=== PATIENT | female | born 1955 | race American Indian/Alaskan Native ===

== ENCOUNTER 2021-05-15 19:42 | Inpatient (IN) | payer OTHER, MEDICAID, SELFPAY ==
[~2021-05-15] VITALS: Ht 157.5 cm; Wt 50.8 kg
[2021-05-15 19:42] VITALS: BP_SYST 183
[2021-05-15 21:59] LABS: BASOPHILS # (AUTO) 0.1 K/uL (0.0-0.2); BASOPHILS % (AUTO) 0.6 % (0.0-2.0); HEMATOCRIT 37.8 % (36-48); HEMOGLOBIN 12.6 g/dL (12.0-16.0); LYMPHOCYTES # (AUTO) 1.5 K/uL (1.0-5.5); MEAN CORPUSCULAR HEMOGLOBIN 28 pg (27-31); MEAN CORPUSCULAR HGB CONC 33 % (32-36); MEAN CORPUSCULAR VOLUME 85 fL (79.0-98.0); MONOCYTES # (AUTO) 0.9 K/uL (0.0-1.0); MONOCYTES % (AUTO) 9.9 % (1.7-9.3); NEUTROPHILS # (AUTO) 6.3 K/uL (1.8-7.7); NEUTROPHILS % (AUTO) 72.5 % (40.0-70.0); PLATELET COUNT (AUTO) 320 K/uL (130-430); RED BLOOD CELL COUNT(AUTO) 4.44 MIL/uL (4.2-6.2); RED CELL DISTRIBUTION WIDTH 18.3 % (9.0-15.0); WHITE BLOOD COUNT (AUTO) 8.7 K/uL (4.8-10.8)
[2021-05-15 22:38] LABS: ANION GAP 15 (5-15); CALCIUM 9.7 mg/dL (8.4-11.0); CHLORIDE 105 mmol/L (98-107); CREATININE 0.86 mg/dL (0.55-1.30); GLUCOSE 122 mg/dL (70-99); POTASSIUM 3.6 mmol/L (3.5-5.1); SODIUM SERUM 140 mmol/L (136-145); UREA NITROGEN, BLOOD 15 mg/dL (8-21)
[2021-05-15 22:41] LABS: GFR AFRICAN AMERICAN 85 mL/min (>90)
[2021-05-15 22:51] LABS: ALANINE AMINOTRANSFERASE 20 U/L (12-78); ALBUMIN 4.1 g/dL (3.4-4.8); ASPARTATE AMINOTRANSFERASE 19 U/L (10-37); THYROID STIMULATING HORMONE 4.99 uIu/mL (0.36-3.74); TOTAL BILIRUBIN 0.4 mg/dL (0.0-1.0)
[2021-05-15 22:53] LABS: ALCOHOL, BLOOD < 3 mg/dL (<10)
[2021-05-15] MEDS ORDERED: GLU500 PO (23:14)
[2021-05-15] MEDS ORDERED: FURO-150 PO (23:15)
[2021-05-15] MEDS ORDERED: SILD20TA PO (23:16)
[2021-05-15] MEDS ORDERED: PREG150C46 PO (23:22)
[2021-05-15] MEDS ORDERED: ROSU20TA2 PO (23:24)
[2021-05-15] MEDS ORDERED: OMEP40CA20 PO (23:26)
[2021-05-15] MEDS ORDERED: NIFE90TA48 PO (23:26)
[2021-05-15] MEDS ORDERED: PILO5TAB11 PO (23:27)
[2021-05-15] MEDS ORDERED: HYDR-3921 PO (23:28)
--- NOTE | 2021-05-15 23:30 | NUR ---
PATIENT REFUSING TO GO TO CT SCAN AT THIS TIME. NOTIFIED
--- NOTE | 2021-05-15 23:30 | NUR ---
Patient to [facility] for evaluation. Side rails up.
--- NOTE | 2021-05-15 23:32 | NUR ---
PATIENT BROUGHT IN BLS FROM HOME FOR ALTERED MENTAL STATUS. PATIENT'S DAUGHTER REPORTS THAT SHE HAS BEEN WEAK X 2 DAYS AND HAS PERIODS OF CONFUSION. LAST KNOWN WELL TIME 3 DAYS AGO. HX OF DIABETES, CANCER, AND RAYNAUD'S DISEASE. DENIES ANY PAIN. AOX3
[2021-05-15] MEDS ORDERED: MYCO500T PO (23:33)
[2021-05-15] MEDS ORDERED: DULO60CA41 PO (23:33)
[2021-05-15] MEDS ORDERED: ASPI-1393 PO (23:33)
[2021-05-15] MEDS ORDERED: BENA20TA9 PO (23:34)
[2021-05-15] MEDS ORDERED: TRAZ-251 PO (23:35)
--- NOTE | 2021-05-15 23:35 | NUR ---
Medication reconciliation completed with information provided by daughter. Any prior medication reconciliation on file was reviewed and corrected.
--- NOTE | 2021-05-16 00:08 | NUR ---
URINE COLLECTED AND SENT TO LAB
[2021-05-16 00:21] LABS: BILIRUBIN,URINE NEGATIVE (NEGATIVE); BLOOD, URINE NEGATIVE (NEGATIVE); CLARITY/URINE SL CLOUDY (CLEAR); COLOR,URINE YELLOW (YELLOW); GLUCOSE,URINE NEGATIVE (NEGATIVE); KETONES,URINE 2+ (NEGATIVE); LEUKOCYTE ESTERASE ,URINE 3+ (NEGATIVE); NITRITE, URINE NEGATIVE (NEGATIVE); PH,URINE 6.5 (5.0-8.0); PROTEIN URINE TRACE (NEGATIVE); UROBILINOGEN,URINE 0.2 (0.2-1.0)
[2021-05-16 00:52] LABS: BARBITURATE, URINE NEGATIVE (NEG <=200); BENZODIAZEPINE, URINE NEGATIVE (NEG <=150); CANNABINOID, URINE POSITIVE (NEG <=50); COCAINE, URINE NEGATIVE (NEG <=150); METHAMPHETAMINES SCREEN,URINE NEGATIVE (NEG <=500); OPIATE, URINE POSITIVE (NEG <=100); PHENCYCLIDINE SCREEN,URINE NEGATIVE (NEG <=25); UR TRICYCLIC ANTIDEPRESSANTS NEGATIVE (NEG <=300); URINE AMPHETAMINE NEGATIVE (NEG <=500); URINE METHADONE NEGATIVE (NEG <=200); URINE OXYCODONE SCREEN NEGATIVE (NEG <=100); URINE PROPOXYPHENE SCREEN NEGATIVE (NEG <=300)
--- NOTE | 2021-05-16 00:54 | NUR ---
PATIENT OFF UNIT TO CT SCAN WITH LANDRY
[2021-05-16 00:57] LABS: BACTERIA,URINE FEW /HPF (None Seen); RBC,URINE 0-3 /HPF (0-3)
--- NOTE | 2021-05-16 01:12 | NUR ---
patient returned in stable condition. resting in [facility]. no voiced complaints at this time.
--- NOTE | 2021-05-16 02:42 | NUR ---
Dr. Melton speaking to daughter regarding patient's results and admit to hospital.
[2021-05-16] MEDS ORDERED: NACL 0.9% 1,000 ML IV ONE (03:00)
--- NOTE | 2021-05-16 03:10 | NUR ---
# 20 gauge angiocath placed to left ac. Use of asceptic technique. Opsite placed over site. Blood return noted. Blood for lab drawn from site. Flushed with 10 cc of normal saline. No evidence of infiltration noted. Patient tolerated well.
[2021-05-16] MEDS ORDERED: INSULIN ASPART 100 UNITS/ML, 10 ML VIAL (NovoLOG) SUBCUT PRN (03:15)
--- NOTE | 2021-05-16 03:20 | NUR ---
report given to SARTHAK Harris for continuation of care.
[2021-05-16] MEDS ORDERED: INSULIN REGULAR, HUMAN 100 UNITS/ML, 10 ML VIAL (humuLIN R) SUBCUT PRN (03:45)
[2021-05-16] MEDS ORDERED: INSULIN LISPRO SLIDING SCALE 100 UNITS/ML VIAL (humaLOG) SUBCUT PRN (03:45)
--- NOTE | 2021-05-16 03:49 | NUR ---
Given blankets as request.
[2021-05-16] MEDS: NACL 0.9% 1,000 ML IV SCH ×2 (04:02→14:28)
--- NOTE | 2021-05-16 07:51 | NUR ---
REPORT RECEIVED, PT LAYING FLAT IN BED, EYES CLOSED, EASILY AROUSABLE TO NAME. PT AAOX3, IN NAD. RESP EVEN AND UNLABORED,ON RA @98%,DENIES ANY PAIN AT THIS TIME. VSS, AFEBRILE. DENIES ANY SOB OR CP. SKIN W/D/I.
--- NOTE | 2021-05-16 08:16 | NUR ---
BREAKFAST TRAY OFFERED, PT ATE OATMEAL ONLY, RFUSING [place] TOAST, STATES "I DON'T LIKE IT", OJ AND MILK TAKEN.
--- NOTE | 2021-05-16 09:22 | NUR ---
ADMISSION NOTE Received patient from ER via buzz, received report from [employer]. Patient admitted with diagnosis of ALOC. Patient oriented to hospital routine, call light, toileting and safety-patient verbalized understanding.
[2021-05-16 09:23] VITALS: BP_SYST 159
--- NOTE | 2021-05-16 10:01 | NUR ---
Home medications inventoried and sent to pharmacy - patient agreeable - 2 bags sent to pharmacy.
--- NOTE | 2021-05-16 11:06 | NUR ---
Dr. Molina rounds assessed the patient, will follow up with any new orders.
[2021-05-16] MEDS ORDERED: HYDROcodone/ACETAMIN 5-325 MG TAB (NORCO/ VICODIN) PO PRN (11:15)
[2021-05-16] MEDS ORDERED: NALOXONE HCL 0.4 MG/ML AMP (NARCAN) IVP PRN (11:15)
--- NOTE | 2021-05-16 11:37 | NUR ---
CONSULT CARDIOLOGY ALOC DR JONES [phone] S/W [employer]
--- NOTE | 2021-05-16 11:41 | NUR ---
CONSULT NEUROLOGY ALOC REAL PLASCENCIA SENT TEXT MESSAGE TO DR SANDERS
[2021-05-16] MEDS: PILOCARPINE 5 MG PO SCH ×2 (14:03→21:00)
--- NOTE | 2021-05-16 14:03 | NUR ---
Dr. Whiteside and Dr. Friedman rounds assessed patient, will follow up with any new orders. Will hold Pil[place] dose per Dr. Whiteside.
[2021-05-16] MEDS: SILDENAFIL CITRATE 20 MG TABLET PO SCH ×2 (14:26→22:11)
[2021-05-16] MEDS: metFORMIN HCL 500 MG TABLET PO SCH (17:06)
[2021-05-16 17:56] VITALS: BP_SYST 134
--- NOTE | 2021-05-16 18:30 | NUR ---
EEG completed at bedside at this time, patient tolerated well.
--- NOTE | 2021-05-16 18:37 | NUR ---
Closing note, patient resting in bed, denies pain, no distress, IV line is patent, no s/s of infiltration, all needs met, bed in lowest position, three side rails up, call light within reach, bed alarm on, fall and aspiration precautions in place.
--- NOTE | 2021-05-16 19:15 | NUR ---
OPENING NOTES: Received patient report from morning shift nurse. Patient in bed, eyes closed, breathing evenly and nonlabored on room air, HOB elevated, no s/s of distress. Patient has an IV on the LAC 20G SL, patent, benign, and flushing. No s/s of infection or infiltration. Educated patient on plan of care and call light use. Patient verbalized understanding with return demonstration. Fall/safety precaution. Will continue to monitor.
[2021-05-16 20:00] VITALS: BP_SYST 141
[2021-05-16] MEDS ORDERED: traZODone HCL 50 MG TABLET (DESYREL) PO SCH (21:00)
[2021-05-17] VITALS: BP_SYST 136
--- NOTE | 2021-05-17 | NUR ---
ROUNDS: Patient in bed, eyes closed, breathing evenly and nonlabored on room air, no s/s of distress. All needs met at this time. Will continue to monitor.
[2021-05-17] MEDS: NACL 0.9% 1,000 ML IV SCH ×2 (03:32→15:35)
--- NOTE | 2021-05-17 06:47 | NUR ---
CLOSING NOTES: Patient in bed, eyes closed, breathing evenly and nonlabored on room air, HOB elevated, no s/s of distress. Patient has an IV on the LAC 20G SL, patent, benign, and flushing. No s/s of infection or infiltration. All needs met at this time. Fall/safety precaution. Will continue to monitor and endorse care to morning shift nurse.
--- NOTE | 2021-05-17 06:59 | NUR ---
Nutrition Update Leodan Scale 18 noted. Pt admitted for ALOC Diet: [facility] BMI: 20.5 kg/m2 RD to follow per nutrition care standards.
[2021-05-17] MEDS ORDERED: LEVOTHYROXINE SODIUM 0.025 MG TABLET PO SCH (07:00)
--- NOTE | 2021-05-17 07:45 | NUR ---
Opening note patient resting in bed, a/ox4, assisted patient to bedside commode and back to bed, she tolerated well, assessment complete, IV line is patent and infusing well, educated patient on plan of care and call light system, she verbalized understanding, bed in lowest position, three side rails up, bed alarm on, call light placed within reach, fall and aspiration precautions in place.
[2021-05-17 08:00] VITALS: BP_SYST 128
[2021-05-17] MEDS: SILDENAFIL CITRATE 20 MG TABLET PO SCH ×2 (08:35→15:27)
[2021-05-17] MEDS: PILOCARPINE 5 MG PO SCH ×2 (08:36→15:00)
[2021-05-17] MEDS: metFORMIN HCL 500 MG TABLET PO SCH ×2 (08:36→16:55)
[2021-05-17] MEDS ORDERED: ATORVASTATIN 20 MG TABLET PO SCH (09:00)
[2021-05-17] MEDS ORDERED: PANTOPRAZOLE SODIUM 40 MG TAB PO SCH (09:00)
[2021-05-17] MEDS ORDERED: lisinopriL 20 MG TABLET PO SCH (09:00)
[2021-05-17] MEDS ORDERED: mycophenolate mofetiL 250 MG CAPSULE PO SCH (09:00)
[2021-05-17] MEDS ORDERED: DULoxetine HCL 30 MG CAPSULE.DR (CYMBALTA) PO SCH (09:00)
[2021-05-17] MEDS ORDERED: ASPIRIN 81 MG TABLET(ECOTRIN) PO SCH (09:00)
[2021-05-17] MEDS ORDERED: NIFEDIPINE 90 MG TABLET.SA (PROCARDIA XL 90 MG) PO SCH (09:00)
--- NOTE | 2021-05-17 10:18 | NUR ---
Paged Dr. Molina regarding Ativan order for MRI.
--- NOTE | 2021-05-17 10:35 | NUR ---
HIGH ALERT NOTE: Called Dr. Molina back at [phone] identified within the medical roster to verify physician authenticity. Ativan 1 mg IVP for MRI.
[2021-05-17] MEDS ORDERED: LORazepam 2 MG/ML VIAL IVP ONE (10:45)
--- NOTE | 2021-05-17 10:54 | NUR ---
Patient up with Physical therapy tachycardia 125's while ambulating, patient is not in any distress at this time.
--- NOTE | 2021-05-17 11:09 | NUR ---
Patient off the unit to MRI via wheelchair, administered Ativan 1mg IVP x1 prior to MRI. Addendum: 05/17/21 at 1239 by Ferny Oliver RN [id number] patient returned from MRI, no distress.
[2021-05-17 12:10] VITALS: BP_SYST 105
[2021-05-17] MEDS ORDERED: LEVO25TA2 PO (14:14)
--- NOTE | 2021-05-17 15:34 | NUR ---
Paged Dr. Friedman to inform of MRI brain and Carotid US results - pending for patient discharge home today. Addendum: 05/17/21 at 1743 by Ferny Oliver RN Spoke with Dr. Friedman - patient is cleared for discharge home, patient to follow up with him in 3 weeks.
[2021-05-17 16:35] VITALS: BP_SYST 110
[2021-05-17 17:50] VITALS: BP_SYST 110
--- NOTE | 2021-05-17 18:27 | NUR ---
Discharge paperwork patient is eating dinner, family at bedside, discharge paperwork discussed with the patient and her son, they verbalized understanding, pending discharge home be.
--- NOTE | 2021-05-17 18:55 | NUR ---
D/C Patient Patient given medication reconciliation form and D/C instructions. Exit Care provided. Patient verbalized understanding. MD discussed with patient the results and treatment provided. Ambulatory with steady gait for discharge to home. Patient in stable condition, ID band removed. IV catheter removed, intact and dressing applied, no active bleeding. ERX OF LEVOTHYROXINE CALLED IN BY DR. PACHECO - ANJUM FOR THE PATIENT TO PICK. Patient educated on pain management. All belongings sent with patient.
[2021-05-18] MEDS ORDERED: LEVOTHYROXINE SODIUM 0.025 MG TABLET PO SCH (07:00)
== END 2021-05-17 18:55 | disposition home or self-care (01) | DRG 69 ==
LOC: SED 19:42 → STU 05-16 03:00
PROVIDERS: ADMIT Internal Medicine; ATTEND Internal Medicine
DX: G45.9 Transient cerebral ischemic attack, unspecified (principal); G92 Toxic encephalopathy; N39.0 Urinary tract infection, site not specified; F32.9 Major depressive disorder, single episode, unspecified; E11.9 Type 2 diabetes mellitus without complications; G31.84 Mild cognitive impairment of uncertain or unknown etiology; F41.9 Anxiety disorder, unspecified; G89.29 Other chronic pain; I10 Essential (primary) hypertension; Z20.822 Contact with and (suspected) exposure to COVID-19; Z60.2 Problems related to living alone; K21.9 Gastro-esophageal reflux disease without esophagitis; I25.10 Atherosclerotic heart disease of native coronary artery without angina pectoris; F19.10 Other psychoactive substance abuse, uncomplicated; E03.9 Hypothyroidism, unspecified; I73.00 Raynaud's syndrome without gangrene; M34.9 Systemic sclerosis, unspecified; Z85.41 Personal history of malignant neoplasm of cervix uteri; Z87.891 Personal history of nicotine dependence; Z90.710 Acquired absence of both cervix and uterus; Z88.1 Allergy status to other antibiotic agents; Z79.82 Long term (current) use of aspirin; Z79.899 Other long term (current) drug therapy; Z89.022 Acquired absence of left finger(s)
CPT/HCPCS: 36415; 70450-TC; 70551; 71045; 76376; 80053; 80307; 81000; 82962; 83605; 83880; 84439; 84443; 84484; 85025; 87040-TC; 87086; 93005; 93306; 93880; 95816; 96365; 99285; G0378; G0482; J1956; J2060; J7517